=== PATIENT | male | born 1995 ===

== ENCOUNTER → 2017-10-27 14:02 | Outpatient (CLI) | payer BC ==
[~2017-10-27] VITALS: Ht 182.9 cm; Wt 84.4 kg
== END | disposition home or self-care (01) ==
LOC: PPHC 14:02
DX: R10.84 Generalized abdominal pain (principal)

== ENCOUNTER → 2017-10-27 17:11 | Outpatient (CLI) | payer BC | END | disposition home or self-care (01) | LOC: LAB 17:11 | DX: R10.9 Unspecified abdominal pain (principal) ==